=== PATIENT | female | born 1960 | race Caucasian/White ===

== ENCOUNTER → 2017-05-01 | Outpatient (CLI) | payer OTHER ==
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
== END | disposition home or self-care (01) ==
LOC: RADCTMAIN 16:06
PROVIDERS: ATTEND Internal Medicine Infectious Disease
DX: M48.02 Spinal stenosis, cervical region (principal); M99.71 Connective tissue and disc stenosis of intervertebral foramina of cervical region; M46.82 Other specified inflammatory spondylopathies, cervical region; M47.812 Spondylosis without myelopathy or radiculopathy, cervical region
CPT/HCPCS: 72125

== ENCOUNTER → 2017-06-04 | Outpatient (CLI) | payer OTHER ==
[2017-06-03 15:45] VITALS: BMI 21.9
[2017-06-04 14:39] VITALS: BP 158/86; PULSE 74; RESP 18; TEMP 98.5
--- NOTE | 2017-06-04 16:36 | P.CONS ---
History of Present Illness - Reason for Consult Consult date: 06/04/17 - Chief Complaint Neck and lower back pain - History of Present Illness This is a 57-year-old HIV positive woman with chronic history of neck, and lower back pain. The neck pain is more intense than her lower back pain and it radiates down her spine but she occasionally gets numbness and tingling in both hands. Also the pain occasionally goes down her left arm to the elbow on the left side. The pain keeps her up at night as she states. She denies any weakness in the upper or lower extremities or any bowel or bladder dysfunction. She had seen a surgeon many years ago who recommended surgery at that point however the patient did not want to undergo surgery at that point. The patient was seen in our clinic in 2013 at that point she also refused to have any injections done. Meanwhile she has been getting prescriptions for MS Contin 30 mg twice a day and [place] 10 mg 3 times a day from Dr. Patel. The patient was referred to us for opioid management. The patient had an MRI done on the cervical spine which showed severe left facet arthropathy and severe left neural foraminal narrowing at the C3-C4 level it also showed severe uncovertebral hypertrophy and facet arthropathy creating severe bilateral neuroforaminal narrowing at C5-C6 level. The patient is a heavy smoker and she came in today with her boyfriend who was doing most of the talk for her,and demanding that she be prescribed the same dosage of her opioids, because it has been working for her for the last 9 years as he states. Past Medical History Past Medical History: No Reported History, COPD, GERD/Reflux, Hearing Disorder / Deafness, Osteoarthritis (OA), Respiratory Disorder, Skin Disorder, Thyroid Disorder Additional Past Medical History / Comment(s): HIV. SPINAL STENOSIS IN NECK. HERNIATED DISC History of Any Multi-Drug Resistant Organisms: None Reported Past Surgical History: Section Additional Past Surgical History / Comment(s): ANAL FISTULA REPAIR X 2 Past Anesthesia/Blood Transfusion Reactions: No Reported Reaction Smoking Status: Current every day smoker - Past Family History Mother Family Medical History: No Reported History Medications and Allergies Home Medications Medication Instructions Recorded Confirmed Type Azithromycin 600 mg PO FR 08/12/13 06/04/17 History Levothyroxine Sodium [Synthroid] 100 mcg PO DAILY 08/12/13 06/04/17 History Morphine Sulfate [Ms Contin] 30 mg PO Q8HR 08/12/13 06/04/17 History Elviteg/Dixie/Emtric/Tenofo Dis 1 tab PO DAILY 06/03/17 06/04/17 History [Stribild Tablet] Ergocalciferol [Vitamin D2] 50,000 unit PO MO 06/03/17 06/04/17 History Ranitidine HCl 300 mg PO BID 06/03/17 06/04/17 History Sennosides [Senna] 8.6 mg PO BID 06/03/17 06/04/17 History Umeclidinium [place] [Incruse 62.5 mcg INHALATION DAILY 06/03/17 06/04/17 History Ellipta] HYDROcodone/APAP 10-325MG [[place] 1 tab PO QID 06/04/17 06/04/17 History 10-325] Allergies Allergy/AdvReac Type Severity Reaction Status Date / Time amoxicillin trihydrate Allergy Nausea Verified 06/03/17 15:36 [From Augmentin] potassium clavulanate Allergy Nausea Verified 06/03/17 15:36 [From Augmentin] Physical Exam Vitals: Vital Signs Temp Pulse Resp BP Pulse Ox 06/04/17 14:29 98.5 F 74 18 158/86 99 - Constitutional General appearance: thin - EENT Eyes: PERRLA ENT: hard of hearing - Respiratory Respiratory: bilateral: CTA - Cardiovascular Rhythm: regular - Neurologic Neurologic: CNII-XII intact - Musculoskeletal Musculoskeletal: strength equal bilaterally - Psychiatric Psychiatric: A&O x's 3, appropriate affect, intact judgment & insight Neuro exam of the upper extremities showed normal and symmetrical deep tendon reflexes and muscle strength. She has tenderness in the cervical paravertebral area bilaterally. Neuro exam of the lower extremities showed normal and symmetrical muscle strength, hyperreflexive knee reflexes and absent ankle reflexes bilaterally. She has no greater trochanter tenderness. Straight leg raising test negative bilaterally. Carlin's test negative bilaterally. Internal and external rotation of the hip joints did not elicit any pain. She has decreased range of motion of the cervical spine with pain with extreme range of motion. Assessment and Plan Plan: This is a 57-year-old female with the following diagnoses: Cervical spondylosis without myelopathy Cervical neuroforaminal stenosis Tobacco usage Opioid dependence HIV-positive The patient may benefit from getting cervical medial branch block and if it does help her pain we can plan on doing radio frequency ablation in the future, however the patient refuses to have any injections done on her neck and her boyfriend was also voicing his concern saying that this injection never worked. The patient's boyfriend was adamant about getting prescriptions for the same medications that she's been on. I am concerned with prescribing these medications with such a high dose given her the patient has been on them for many years now. I will however prescribe small dose of her medications and try to wean her down on opioids and I'll prescribe her MS Contin 30 mg twice a day only(#60) and [place] 10 mg twice a day too(#60). The prescriptions are to be filled 2 weeks from now because the patient has prescription from Dr. Patel. The patient continues to refuse our care plan then she might need to see a different pain clinic in the future.
== END | disposition home or self-care (01) ==
LOC: PNWHC3 13:21
PROVIDERS: ATTEND Anesthesiology
DX: G89.29 Other chronic pain (principal); M54.2 Cervicalgia; M54.5 Low back pain; M99.71 Connective tissue and disc stenosis of intervertebral foramina of cervical region; M47.812 Spondylosis without myelopathy or radiculopathy, cervical region; M46.82 Other specified inflammatory spondylopathies, cervical region; F17.200 Nicotine dependence, unspecified, uncomplicated; J44.9 Chronic obstructive pulmonary disease, unspecified; K21.9 Gastro-esophageal reflux disease without esophagitis; M19.90 Unspecified osteoarthritis, unspecified site; E07.9 Disorder of thyroid, unspecified; Z79.2 Long term (current) use of antibiotics; Z79.899 Other long term (current) drug therapy; Z79.891 Long term (current) use of opiate analgesic; Z88.0 Allergy status to penicillin; Z88.1 Allergy status to other antibiotic agents; Z21 Asymptomatic human immunodeficiency virus [HIV] infection status
CPT/HCPCS: 99211

== ENCOUNTER → 2017-07-02 | Outpatient (CLI) | payer OTHER ==
[2017-07-02 13:06] VITALS: BP 153/80; PULSE 69; RESP 18
--- NOTE | 2017-07-03 13:48 | P.PN ---
Subjective Progress Note Date: 07/02/17 Principal diagnosis: This is follow-up visit for this patient with a history of severe and chronic neck pain ,and low back pain , she had an MRI of the cervical spine done previously and it showed patient had Cervical degenerative disc disease and cervical spondylosis with cervical facet arthropathy , last visit we discussed the option of doing diagnostic medial branch block to treat her neck pain , patient denied any interventional pain management , and she is currently on MS Contin 30 mg twice a day and [place] 10/ 325 when necessary twice a day Patient denies any side effects of the medication, denies excessive drowsiness or sleepiness, denies suicidal ideation, and reports that the current pain medication is NOT helping To control the pain and improve activity of daily living . Patient denies any motor or sensory deficit, denies change in bowel movement or urination, patient denies any fever or night sweats and patient here for follow-up visit and medication refill, patient reported that her pain in the low back area increases significantly , and is interfering with her quality of life and preventing her from doing any activity of daily livings, intensity of the pain is 7/10 increased with activity to 10 over 10, she is able to ambulate , but any movement increases her pain Objective - Vital Signs Vital signs: Vital Signs Temp Pulse 69 07/02/17 12:55 Resp 18 07/02/17 12:55 BP 153/80 07/02/17 12:55 Pulse Ox Intake & Output 07/02/17 07/03/17 07/03/17 18:59 06:59 18:59 Weight 55.338 kg - Exam Physical Examinations : 1-Constitutiona : Cooperative , not in acute distress . 2-HEENT : nech ; supple , no Lymphadenopathy , normal thyroid size . eyes : no ptosis , no icterus, no photophobia . ENT : normal of hearing , normal oropharynx , no Thrush . 3- Respiratory : Chest clear to auscultations Bilaterally , no wheezing , no Rhonchi . 4- Cardiovascular : regular rate and rhythem , S1 , S2 , no S3 , no S4. 5- Gastrointestinal : abdomen soft no tenderness , bowel sounds positive all four quadrents , no organomegally . 6- Genitourinary : Defferred . 7- neurologic : Cranial nerve II to XII intact , no focal neurological deffecit . 8-psychatric : alert , oriented X 3 , appropriate affect , intact judgment and insight . 9-Lymphatic : no Lymphadenopathy . 10- musculoskeltal : cervical spine = motor stregnth in the deltoid and biceps, motor stregnth biceps and the wrist extensors (C6) . motor stregnth in the triceps muscle . deep tendon reflexes normal at the biceps , normal at Brachioradialis , normal at the Triceps positive cervical facet loading test . , Lumber spine = normal moter stegnth lower extremities ,thigh and legs .5/5 deep tendon reflexes : normal Knee Jerk , normal ankle Jerk . lumber facet Loading Test positive strait leg raising test negative bilaterally Fabere test negative bilaterally Positive tenderness over the left sacroiliac joint Assessment and Plan Plan: Assessment and plan= Chronic neck pain secondary to cervical spondylosis, patient refuses any interventional pain management on the cervical area. chronic low back pain secondary to lumbar spondylosis with lumbar facet arthropathy , We will order MRI of the lumbar spine to evaluate the etiology chronic and current use of high-risk medication (opioids) Patient denies any side effects of the current pain medication and the current treatment/medication ML and the patient to do activity of daily living , Diagnoses, prognosis, treatment options, including but not limited to physical therapy, medication management, interventional therapies, and surgery, were discussed with the patient All the questions answered Patient signed the narcotic agreement, and he was orally counseled, not to overuse, not to abuse, not to Divert , not tp sell pain medication, and to take it as prescribed only, Patient was counseled not to drive or operate heavy equipment while using narcotic medication, and advised not to use alcohol or any Illicit drugs while using the narcotis, the patient's verbalized understanding that lack of compliance with any of the above instructions and will likely to cause discharge from the pain service, not to renew his narcotic prescriptions Medication managements= patient given e prescription refills for MS Contin 30 mg twice a day dispense 60, [place] 10/325 every 12 hours when necessary dispense 60 Urine drug screen ordered, she will follow up in the pain clinic in 1 month's , Time with Patient: Less than 30
== END | disposition home or self-care (01) ==
LOC: PNWHC3 12:45
PROVIDERS: ATTEND Specialist
DX: G89.29 Other chronic pain (principal); M47.812 Spondylosis without myelopathy or radiculopathy, cervical region; M47.816 Spondylosis without myelopathy or radiculopathy, lumbar region; M46.96 Unspecified inflammatory spondylopathy, lumbar region; Z79.899 Other long term (current) drug therapy; Z79.891 Long term (current) use of opiate analgesic
CPT/HCPCS: 80356; 99211

== ENCOUNTER → 2017-07-25 | Outpatient (CLI) | payer OTHER ==
--- NOTE | 2017-07-25 16:01 | MR ---
EXAMINATION TYPE: MR lumbar spine wo con DATE OF EXAM: 07/25/2017 COMPARISON: NONE HISTORY: Lower back pain into left hip CONTRAST: 0 mL intravenous Gadavist. TECHNIQUE: Multiplanar, multisequence images of the lumbar spine were acquired. FINDINGS: Mild diffuse disc desiccation is present. Disc heights appear preserved. L5-S1: No significant disc bulge or disc herniation. No spinal canal stenosis. No foraminal stenosi s. Facet hypertrophy is present. L4-L5: No significant disc bulge or disc herniation. No spinal canal stenosis. No foraminal stenosi s. . L3-L4: No significant disc bulge or disc herniation. No spinal canal stenosis. No foraminal stenosi s. Some facet hypertrophy is present without posterior lateral thecal sac compression.. L2-L3: No significant disc bulge or disc herniation. No spinal canal stenosis. No foraminal stenosi s. . L1-L2: No significant disc bulge or disc herniation. No spinal canal stenosis. No foraminal stenosi s. . T12-L1: No significant disc bulge or disc herniation. No spinal canal stenosis. No foraminal stenos is. . There is patchy variable intensity throughout the visualized osseous structures. Is there an etiology for marrow conversion? Consider the possibility of diffuse metastasis. Additional workup is recommen ded IMPRESSION: 1. No suspicious spinal canal or foraminal stenosis. 2. Patchy distribution through the marrow. This may be related to red marrow conversion. Infiltrative metastatic disease is not excluded. Additional workup is recommended.
== END ==
LOC: RADMRIMAIN 15:10
PROVIDERS: ATTEND Specialist
DX: M89.8X8 Other specified disorders of bone, other site (principal); M47.816 Spondylosis without myelopathy or radiculopathy, lumbar region
CPT/HCPCS: 72148

== ENCOUNTER → 2017-07-30 | Outpatient (CLI) | payer OTHER ==
[2017-07-30 14:28] VITALS: BP 144/82
[2017-07-30 14:29] VITALS: PULSE 86; RESP 18
--- NOTE | 2017-07-30 14:48 | P.PN ---
Progress Note - Text Progress Note Date: 07/30/17 Patient returns for followup for chronic back pain with radiation to left > right hip. Patient recently underwent MRI, results below. Patient is currently prescribed MSContin and Masp[place] which she says is not helping her with the pain, as she was getting substantially higher-dose opioids prior to her coming to our facility. Patient denies adverse drug effects from medications. Today, pt denies new-onset weakness, bowel/bladder incontinence, or any other signs or symptoms of cauda equina syndrome. There are no signs of acute intoxication, and no indications of medication diversion or overuse. In addition to above, 13-point review of systems is also negative for chest pain , shortness of breath, changes in vision, changes in hearing, new onset weakness , abdominal pain, diarrhea, extreme fatigue, malaise, fever, skin changes, homicidal or suicidal ideation, or bowel or bladder incontinence. Vital Signs: Reviewed in EMR Gen: WDWN, AAOx3, NAD HEENT: NCAT, EOMI, hearing grossly normal Pulm: resp unlabored Abd: soft, NT, ND Neck: supple, trachea midline ROM in flexion lumbar spine: reduced ROM in extension lumbar spine: reduced Lumbar paravertebral tenderness: + Facet loading: + R side Imaging: MRI lumbar spine without contrast dated 07/25/2017 demonstrates some mild facet hypertrophy without posterior lateral thecal sac compression at the L3-L4 level. There is mild facet hypertrophy present also at the L5-S1 level. There is no suspicion for spinal canal or foraminal stenosis. Assessment: 1. opioid dependence 2. chronic low back pain with essentially negative MRI 3. marijuana abuse Plan: 1. Explanation: Opioid and psychological risk scores were reviewed. Diagnoses , prognoses, and multiple treatment options including but not limited to physical therapy, interventional therapies, adjuvant medical therapies, narcotic medication therapies, and surgery were discussed with the patient and all questions were answered to the patient's satisfaction. 2. Opioid agreement: patient discharged from our clinic for +THC 3. Counseling: The patient was counseled extensively on SMOKING CESSATION, BODY MASS INDEX, EXERCISE. Specifically, the patient was instructed regarding the importance of smoking cessation, weight control, and exercise in the context of both chronic pain and overall health. 4. Procedures: none 5. Consultations: None 6. Investigations: UDS +THC and positive for opioids (oxycodone) that are not prescribed, MAPS queried and appropriate 7. Medications: MSContin 30 mg #60 with no refill, M[place] 10/325 #60 with appropriate fill dates 8. Morphine equivalents per day prescribed: 80 9. Disposition: Patient DISCHARGED from our care due to +THC and + oxycodone and metabolite in UDS. DO NOT RESCHEDULE. Patient instructed to follow up with primary care physician for further management and further workup of MRI findings if needed. PQRS measures: 1-Patient's medications are documented in the chart. 2-Tobacco use is positive, counseling refused 3-Patient has not had a pneumococcal vaccine. 4-Advanced care planning discussed, patient unable to give. 5-Opioid contract NOT signed with the patient. 6-Pain positive, follow-up visit or procedure scheduled 7-Patient's blood pressure measured and documented, and patient will follow up with the primary care due to hypertension. 8-Patient's weight was measured, and body mass index WNL. 9-Patient WAS NOT identified as an unhealthy alcohol user.
== END | disposition home or self-care (01) ==
LOC: PNWHC3 14:01
PROVIDERS: ATTEND Anesthesiology
DX: G89.29 Other chronic pain (principal); F12.10 Cannabis abuse, uncomplicated; Z79.899 Other long term (current) drug therapy; Z79.891 Long term (current) use of opiate analgesic
CPT/HCPCS: 99211

== ENCOUNTER 2020-01-15 19:45 | Inpatient (IN) | payer OTHER ==
[2020-01-15] MEDS ORDERED: NALOXONE 0.4 MG/ML 1 ML VIAL IV PRN (21:36)
--- NOTE | 2020-01-15 21:36 | ED ---
General Adult HPI - General Source: patient, EMS Mode of arrival: EMS Limitations: no limitations <Sandy Kiran - Last Filed: 01/15/20 21:28> <Gracy Lemus - Last Filed: 01/21/20 11:57> - General Chief complaint: Neuro Symptoms/Deficit Stated complaint: hypertension Time Seen by Provider: 01/15/20 20:02 - History of Present Illness Initial comments: 59-year-old female patient presents to the emergency department as a transfer from [facility] for neurology evaluation. Patient reports that she has been having dizziness and intermittent headaches over the last month. The patient states today around 1730 she developed "upside down vision". Patient states it appeared that everything was upside down. States this comes and goes. She did undergo extensive ER evaluation at [place] including labs, CT brain wo contrast, and chest xray. CT brain did show acute on chronic cerebellar infar ct. Patient wanted to be transferred to this department. She denies any current headache. Denies numbness, tingling, weakness to her extremities. Denies history of stroke. She does report a history of HIV and is currently on retroviral therapy. Patient denies any recent rash, fever, chills, cough, shortness of breath, chest pain, abdominal pain, nausea, vomiting, diarrhea, constipation, back pain, hematuria, dysuria, urinary urgency, urinary frequency, or any other complaints. (Sandy Kiran) - Related Data Home Medications Medication Instructions Recorded Confirmed Dolutegravir Sodium [Tivicay] 50 mg PO DAILY 01/15/20 01/15/20 Edurant 25mg 25 mg PO DAILY 01/15/20 01/15/20 HYDROcodone/APAP 10-325MG [[place] 1 tab PO TID 01/15/20 01/15/20 10-325] Morphine Sulfate [Ms Contin] 30 mg PO Q12H 01/15/20 01/16/20 Levothyroxine Sodium [Synthroid] 50 mcg PO QAM 01/16/20 01/16/20 Previous Rx's Medication Instructions Recorded Aspirin 81 mg PO DAILY chew 01/18/20 Atorvastatin [Lipitor] 80 mg PO DAILY #30 tab 01/18/20 Clopidogrel [Plavix] 75 mg PO DAILY #21 tablet 01/18/20 amLODIPine [Norvasc] 5 mg PO DAILY #30 tab 01/18/20 Allergies Allergy/AdvReac Type Severity Reaction Status Date / Time dextrose 5 % in water Allergy Anaphylaxis Verified 01/15/20 22:11 [From Zyvox] linezolid [From Zyvox] Allergy Anaphylaxis Verified 01/15/20 22:11 amoxicillin trihydrate AdvReac Nausea Verified 01/15/20 22:11 [From Augmentin] potassium clavulanate AdvReac Nausea Verified 01/15/20 22:11 [From Augmentin] Review of Systems ROS Other: All systems not noted in ROS Statement are negative. <Sandy Kiran - Last Filed: 01/15/20 21:28> ROS Other: All systems not noted in ROS Statement are negative. <Gracy Lemus - Last Filed: 01/21/20 11:57> ROS Statement: Those systems with pertinent positive or pertinent negative responses have been documented in the HPI. Past Medical History Past Medical History: No Reported History, COPD, GERD/Reflux, Hearing Disorder / Deafness, Osteoarthritis (OA), Respiratory Disorder, Skin Disorder, Thyroid Disorder Additional Past Medical History / Comment(s): HIV. SPINAL STENOSIS IN NECK. HERNIATED DISC History of Any Multi-Drug Resistant Organisms: None Reported Past Surgical History: Section Additional Past Surgical History / Comment(s): ANAL FISTULA REPAIR X 2 Past Anesthesia/Blood Transfusion Reactions: No Reported Reaction Past Psychological History: Depression Smoking Status: Current every day smoker Past Alcohol Use History: None Reported Past Drug Use History: None Reported - Past Family History Mother Family Medical History: No Reported History <Sadny Kiran - Last Filed: 01/15/20 21:28> General Exam Limitations: no limitations General appearance: alert, in no apparent distress, other (This is a well-developed, well-nourished adult female patient in no acute distress. Vital signs upon presentation are temperature 100.6F oral, pulse 69, respirations 18, blood pressure 189/87, pulse ox 98% on room air.) Eye exam: Present: normal appearance, PERRL, EOMI. Absent: scleral icterus, conjunctival injection, nystagmus, periorbital swelling ENT exam: Present: normal exam, normal oropharynx, mucous membranes moist Respiratory exam: Present: normal lung sounds bilaterally. Absent: respiratory distress, wheezes, rales, rhonchi, stridor Cardiovascular Exam: Present: regular rate, normal rhythm, normal heart sounds. Absent: systolic murmur, diastolic murmur, rubs, gallop, clicks GI/Abdominal exam: Present: soft, normal bowel sounds. Absent: distended, tenderness, guarding, rebound, rigid Extremities exam: Present: normal inspection, full ROM, normal capillary refill. Absent: tenderness, pedal edema, joint swelling, calf tenderness Neurological exam: Present: alert, oriented X3, CN II-XII intact Expanded Speech: Present: fluid speech Cranial nerves: EOM's Intact: Normal, Tongue Deviation: Normal Motor strength exam: RUE: 5, LUE: 5, RLE: 5, LLE: 5 Psychiatric exam: Present: normal affect, normal mood Skin exam: Present: warm, dry, intact, normal color. Absent: rash <Sandy Kiran - Last Filed: 01/15/20 21:28> Course Vital Signs 01/15/20 01/15/20 01/15/20 19:52 20:03 20:36 Temperature 100.6 F H 99.4 F Pulse Rate 69 71 75 Respiratory 18 20 18 Rate Blood Pressure 189/87 174/79 166/86 O2 Sat by Pulse 98 97 98 Oximetry 01/15/20 01/15/20 01/15/20 21:23 21:59 22:22 Temperature 98.9 F 99.0 F Pulse Rate 71 110 H 80 Respiratory 18 18 18 Rate Blood Pressure 176/74 176/84 168/81 O2 Sat by Pulse 100 97 98 Oximetry Medical Decision Making - Radiology Data Radiology results: report reviewed, image reviewed <Sandy Kiran - Last Filed: 01/15/20 21:28> - Lab Data Result diagrams: 01/17/20 06:53 01/17/20 06:53 <Gracy Lemus - Last Filed: 01/21/20 11:57> - Medical Decision Making 59-year-old female patient presented to the emergency department today as a t ransfer from [facility]. Patient was sent for neurology evaluation due to changes on computed tomography scan. She presents month history of dizziness and headaches. Today she developed "upside down vision" around 1730, this was new for her. She states this is intermittent. Upon arrival to this emergency Department blood sugar has improved. She has no focal deficits noted during neurologic evaluation. Review of records did indicate CT showed an old right posterior cerebellar infarct, at the inferior edge of this infarct there is more acute appearing infarct measuring up to 15 mm. Labs, chest x-ray, and EKG were reviewed and appeared unremarkable. Patient will be admitted to the hospital for neurology evaluation after undergoing CT angiography of the head and neck. Patient is agreeable with this plan. (Sandy Kiran) I was available for consultation in the emergency department. The history and physical exam were done by the midlevel provider. I was consulted for this patients care. I reviewed the case with the midlevel provider and based on their presentation of the patient, I agree with the assessment, medical decision making and plan of care as documented. Chart was dictated using [employer] dictation software. Attempts were made to correct any dictation errors however some typographical errors may persist. Patient was seen during a national state of emergency due to the Covid-19 pandemic. (Gracy Lemus) - Radiology Data Head without contrast was obtained at an outside facility. Report was reviewed in its entirety. Impression by Dr. Padilla shows old right posterior cerebellar infarct. At the inferior edge of this infarct is a more acute appearing infarct measuring up to 15 mm. X-ray of the chest 2 views were obtained at an outside facility. Report was reviewed in its entirety. Impression by Dr. Padilla shows no acute findings. (Sandy Kiran) Disposition Decision to Admit Reason: Admit from EC Decision Date: 01/15/20 Decision Time: 21:36 <Sandy Kiran - Last Filed: 01/15/20 21:28> <Gracy Lemus - Last Filed: 01/21/20 11:57> Clinical Impression: CVA (cerebral vascular accident), Visual disturbance Disposition: ADMITTED IP TO THIS [facility] Condition: Stable
--- NOTE | 2020-01-15 21:51 | CT ---
EXAMINATION TYPE: CT angio head neck DATE OF EXAM: 01/15/2020 COMPARISON: HISTORY: FELIX CT DLP: 375.7 mGycm Automated exposure control for dose reduction was used. CONTRAST: Performed with IV Contrast, patient injected with 65 mL of Isovue 370. There are 3-D post processed images. There is normal branching pattern of the great vessels on the aortic arch. There is bilateral arteria l flow in the subclavian arteries. There is arterial flow in the common internal and external carotid arteries bilaterally. There is arterial flow in both vertebral arteries. There is some mild plaque f ormation at the carotid artery bifurcations bilaterally. There is estimated 40% stenosis proximal lef t internal carotid artery. There is estimated 20% stenosis proximal right internal carotid artery. Th ere is no evidence of carotid or vertebral artery aneurysm or dissection. Left vertebral artery is la rger than the right. There is arterial flow in the vertebrobasilar artery system. There is arterial flow in the anterior middle and posterior cerebral arteries. There is normal contrast opacification of the venous sinuses. I see no evidence of intracranial aneur ysm or neovascularity. There is no mass effect. There is no evidence of intracranial arterial stenosi s. IMPRESSION: There is atherosclerotic plaque and estimated 20% stenosis origin right internal carotid artery and 4 0% stenosis left internal carotid artery. No intracranial angiographic abnormality.
[2020-01-15] MEDS: SODIUM CHLORIDE 0.9% 1,000 ML IV SCH (22:24)
--- NOTE | 2020-01-16 03:39 | P.HPIM ---
History of Present Illness H&P Date: 01/15/20 The patient is a 59-year-old female with a PMH of HIV on ART therapy (last CD4 count 700 as per pt), COPD, and hypothyroidism who was transferred to the emergency room from [facility] for neurology evaluation. Patient had presented to our weeks earlier that day with complaints of dizziness and headaches. The patient notes that her symptoms started roughly one month ago and she has had intermittent daily dizziness which she describes as lightheadedness. Notes that her dizziness is worse with suddenly standing up. Denies vertigo. Denied loss of consciousness or falls. The patient also denied experiencing any weakness, numbness, or tingling of any of her extremities. Denied facial numbness, tingling, asymmetry or changes in her speech. Reported that her into the gotten worse earlier today after which she decided to come to the hospital. The patient underwent an extensive evaluation of [facility] which was all reviewed. A CT brain revealed findings consistent with chronic microvascular disease along with an acute on chronic cerebellar infarct. Laboratory evaluation revealed WBC count of 9.4, Hgb 13.9, platelets 241, sodium 135, potassium 3.8, chloride 100, CO2 27, BUN 15, creatinine 1.3, glucose 94, AST 12, ALT 4, INR 1.08, alkaline phosphatase 99, and total bilirubin 0.5. CXR was unremarkable. Review of Systems Pertinent positives and negatives as discussed in HPI, a complete review of systems was performed and all other systems are negative. Past Medical History Past Medical History: No Reported History, COPD, GERD/Reflux, Hearing Disorder / Deafness, Osteoarthritis (OA), Respiratory Disorder, Skin Disorder, Thyroid Disorder Additional Past Medical History / Comment(s): HIV. SPINAL STENOSIS IN NECK. HERNIATED DISC History of Any Multi-Drug Resistant Organisms: None Reported Past Surgical History: Section Additional Past Surgical History / Comment(s): ANAL FISTULA REPAIR X 2 Past Anesthesia/Blood Transfusion Reactions: No Reported Reaction Past Psychological History: Depression Smoking Status: Current every day smoker Past Alcohol Use History: None Reported Additional Past Alcohol Use History / Comment(s): SMOKES 1 PPD SINCE 1974 Past Drug Use History: None Reported - Past Family History Mother Family Medical History: No Reported History Medications and Allergies Home Medications Medication Instructions Recorded Confirmed Type Dolutegravir Sodium [Tivicay] 50 mg PO DAILY 01/15/20 01/15/20 History Edurant 25mg 25 mg PO DAILY 01/15/20 01/15/20 History HYDROcodone/APAP 10-325MG [[place] 1 tab PO TID 01/15/20 01/15/20 History 10-325] Levothyroxine(Unknown) 1 tab PO DAILY 01/15/20 01/15/20 History Morphine Sulfate [Ms Contin] 30 mg PO Q12H 01/15/20 01/15/20 History Pantoprazole [Protonix] 40 mg PO AC-BRKFST 01/15/20 01/15/20 History Allergies Allergy/AdvReac Type Severity Reaction Status Date / Time dextrose 5 % in water Allergy Anaphylaxis Verified 01/15/20 22:11 [From Zyvox] linezolid [From Zyvox] Allergy Anaphylaxis Verified 01/15/20 22:11 amoxicillin trihydrate AdvReac Nausea Verified 01/15/20 22:11 [From Augmentin] potassium clavulanate AdvReac Nausea Verified 01/15/20 22:11 [From Augmentin] Physical Exam Vitals: Vital Signs Temp Pulse Pulse Resp BP BP Pulse Ox 01/15/20 22:38 98.1 F 74 18 194/89 95 01/15/20 22:22 99.0 F 80 18 168/81 98 01/15/20 21:59 98.9 F 110 H 18 176/84 97 01/15/20 21:23 71 18 176/74 100 01/15/20 20:36 99.4 F 75 18 166/86 98 01/15/20 20:03 71 20 174/79 97 01/15/20 19:52 100.6 F H 69 18 189/87 98 Intake and Output 01/15/20 01/15/20 01/16/20 14:59 22:59 06:59 Output Total 280 Balance -280 Output: Urine 280 Other: # Voids 1 Weight 50.802 kg General: non toxic, no distress, appears at stated age, normal weight Derm: no unusual rashes/lesions no unusual ecchymoses, warm, dry Head: atraumatic, normocephalic, symmetric Eyes: EOMI, no lid lag, anicteric sclera, pupils equal round reactive to light ENT: Nose and ears atraumatic, no thrush, no pharyngeal erythema Neck: No thyromegaly, no cervical lymphadenopathy, trachea midline, supple Mouth: no lip lesion, mucus membranes moist Cardiovascular: S1S2 reg, no murmur, positive posterior tibial pulse bilateral, no edema, capillary refill less than 2 seconds Lungs: CTA bilateral, no rhonchi, no rales , no accessory muscle use Abdominal: soft, nontender to palpation, no guarding, no appreciable organomegaly, normal bowel sounds Ext: no gross muscle atrophy, muscle strength 5 out of 5 in all 4 extremities grossly, no contractures, Neuro: CN II-XI grossly intact, light touch intact all 4 extremities, finger to nose within normal limits, Psych: Alert, oriented, appropriate affect Thrombosis Risk Factor Assmnt - Choose All That Apply Any of the Below Risk Factors Present?: Yes Each Factor Represents 1 point: Abnormal pulmonary function (COPD), Age 41-60 years Other Risk Factors: No Other congenital or acquired thrombophilia - If yes, enter type in comment: Yes Each Risk Factor Represents 5 Points: Stroke (< 1 month) Thrombosis Risk Factor Assessment Total Risk Factor Score: 7 Thrombosis Risk Factor Assessment Level: High Risk Assessment and Plan Plan: Acute on chronic cerebellar infarct -CT angiogram at [place] revealed no intracranial angiographic abnormalities -Neuro checks -Neurology consult -Aspirin daily -Fall precautions -Check orthostatics -PT consult Chronic conditions: HIV, hypothyroidism, COPD -Continue with home meds DVT prophylaxis -IPCDs The patient is admitted with an anticipated greater than 2 midnight stay for evaluation of CVA CODE STATUS: Full Code Discussed with: Patient Anticipated discharge date: 2-[address]: Home A total of 35 minutes was spent on the care of this complex patient more than 5 0% of the time was spent in counseling and care coordination.
[2020-01-16] MEDS ORDERED: PANTOPRAZOLE 40 MG TABLET PO SCH (07:30)
[2020-01-16] MEDS: ASPIRIN 81 MG PO SCH (08:14)
[2020-01-16] MEDS: ATORVASTATIN 80 MG TAB PO SCH (08:14)
[2020-01-16] MEDS ORDERED: LABETALOL 5 MG/ML VIAL MDV IVP PRN (08:26)
[2020-01-16] MEDS: EDURANT 25 MG PO SCH (08:38)
[2020-01-16] MEDS ORDERED: LEVOTHYROXINE PO SCH (09:00)
[2020-01-16] MEDS: FAMOTIDINE 20 MG TAB PO SCH ×2 (10:59→20:32)
--- NOTE | 2020-01-16 11:29 | P.PN ---
Subjective Progress Note Date: 01/16/20 (delayed charting seen at 0830) Principal diagnosis: dizziness Patient is a 59-year-old female past medical history of HIV on antiretroviral therapy (last CD4 count 700 per patient), COPD, and hypothyroidism who was transferred here from [place] for neurology evaluation. Initially she presented to [place] with complaints of dizziness, she underwent a head CT which showed acute evolving cerebellar infarct. On arrival here her vital signs are within normal limits. She underwent a CT angiogram of the head and neck which demonstrated a 20% stenosis of the origin of the right internal carotid and a 40% stenosis in the left internal carotid with no intracranial an giographic abnormalities. She was started on aspirin and statin. She is admitted for neurologic evaluation. Currently in normal sinus rhythm. Patient seen and examined at bedside. She still has some dizziness mostly when up and moving around. She is having some nausea at baseline. No headache, no double vision or blurry vision, no difficulty with concentration or thinking. Dexterity, numbness, or tingling. General: Nontoxic, no distress, appears at stated age Derm: warm, dry Head: atraumatic, normocephalic, symmetric Eyes: EOMI, no lid lag, anicteric sclera Mouth: no lip lesion, mucus membranes moist Cardiovascular: S1S2 reg, no murmur, positive posterior tibial pulse bilateral, Lungs: CTA bilateral, no rhonchi, no rales , no accessory muscle use Abdominal: soft, nontender to palpation, no guarding, no appreciable organomegaly Ext: no gross muscle atrophy, no edema, no contractures Neuro: CN II-XI grossly intact, no focal neuro deficits Psych: Alert, oriented, appropriate affect Acute cerebellar infarct, right sided, suspect ischemic -Await neurology evaluation -Aspirin, statin -Check echo -Telemetry -CTA with moderate left-sided stenosis at 40% -Labetalol for systolic blood pressure greater than 220 or diastolic blood pressure greater than 120 -PT/OT/speech evaluation -Neuro checks Hypothyroidism -Synthroid Chronic pain - MS contin and norco from home resumed COPD without exacerbation - albuterol prn HIV - Tivicay and Edurant from home GERD - pepcid DVT prophylaxis: Heparin Discussed with: Patient, nursing Anticipated discharge: 2-[address]: home A total of 35 minutes was spent on the care of this complex patient more than 50% of the time was spent in counseling and care coordination. Objective - Vital Signs Vital signs: Vital Signs Temp 98.1 F 01/16/20 08:15 Pulse 109 H 01/16/20 08:17 Resp 18 01/16/20 08:15 BP 220/88 01/16/20 09:25 Pulse Ox 96 01/16/20 08:15 Intake & Output 01/15/20 01/16/20 01/16/20 18:59 06:59 18:59 Output Total 930 100 Balance -930 -100 Weight 50.802 kg Output: Urine 930 100 Other: Voiding Method Bedpan # Voids 3
[2020-01-16] MEDS: MORPHINE SULFATE ER 30 MG TABLET PO SCH ×2 (11:38→20:32)
[2020-01-16] MEDS ORDERED: LEVOTHYROXINE 50 MCG TAB PO SCH (13:30)
[2020-01-16] MEDS: LEVOTHYROXINE 50 MCG TAB PO SCH (14:16)
[2020-01-16] MEDS: HYDROcodone/APAP 10-325MG 1 EACH TAB PO SCH ×2 (14:18→20:33)
[2020-01-16] MEDS: HEPARIN SODIUM,PORCINE 5,000 UNIT/ML 1 ML VIAL SQ SCH ×2 (14:18→23:13)
--- NOTE | 2020-01-16 18:26 | P.CNNES ---
History of Present Illness Consult date: 01/16/20 Reason for Consult: acute on chronic right cerebellar infarct History of Present Illness: The patient is a 59-year-old female who is seen in neurologic consultation on January 16, 2020, via teleneurology. The patient reports that she has been dizzy for the past month. She describes this dizziness as a feeling of off balance and lightheadedness. She says when she has this episode of dizziness, she becomes very diaphoretic. She reports headaches. She says the pain is in the posterior left side of her head. Patient denies difficulty with speech and swallowing. She does describe changes in her vision. She reports seeing images that are upside down and sideways. The patient denies numbness, tingling and weakness in her extremities. The patient reports episodes of nausea and vomiting associated with her symptoms. She says she has had a very poor appetite. Patient states that the symptoms finally progressed to the point that she could no longer deal with them. She presented to the hospital at [place]. In the emergency department, a CT scan of the brain was performed. This CT scan revealed an acute on chronic right cerebellar infarct. The patient was subsequently transferred to [facility]. She had a CT angiogram of the head and neck, which revealed 40% stenosis of the left internal carotid artery. There is no reported stenosis of the vertebrobasilar system. Past Medical History Past Medical History: No Reported History, COPD, GERD/Reflux, Hearing Disorder / Deafness, Osteoarthritis (OA), Respiratory Disorder, Skin Disorder, Thyroid Disorder Additional Past Medical History / Comment(s): HIV. SPINAL STENOSIS IN NECK. HERNIATED DISC History of Any Multi-Drug Resistant Organisms: None Reported Past Surgical History: Section Additional Past Surgical History / Comment(s): ANAL FISTULA REPAIR X 2 Past Anesthesia/Blood Transfusion Reactions: No Reported Reaction Past Psychological History: Depression Smoking Status: Current every day smoker Past Alcohol Use History: None Reported Additional Past Alcohol Use History / Comment(s): SMOKES 1 PPD SINCE 1974 Past Drug Use History: None Reported - Past Family History Mother Family Medical History: No Reported History Medications and Allergies Home Medications Medication Instructions Recorded Confirmed Type Dolutegravir Sodium [Tivicay] 50 mg PO DAILY 01/15/20 01/15/20 History Edurant 25mg 25 mg PO DAILY 01/15/20 01/15/20 History HYDROcodone/APAP 10-325MG [[place] 1 tab PO TID 01/15/20 01/15/20 History 10-325] Morphine Sulfate [Ms Contin] 30 mg PO Q12H 01/15/20 01/16/20 History Levothyroxine Sodium [Synthroid] 50 mcg PO QAM 01/16/20 01/16/20 History Allergies Allergy/AdvReac Type Severity Reaction Status Date / Time dextrose 5 % in water Allergy Anaphylaxis Verified 01/15/20 22:11 [From Zyvox] linezolid [From Zyvox] Allergy Anaphylaxis Verified 01/15/20 22:11 amoxicillin trihydrate AdvReac Nausea Verified 01/15/20 22:11 [From Augmentin] potassium clavulanate AdvReac Nausea Verified 01/15/20 22:11 [From Augmentin] Physical Examination - Vital Signs Vital Signs: Vital Signs Temp Pulse Pulse Resp BP BP Pulse Ox 01/16/20 15:00 97.7 F 73 18 185/100 95 01/16/20 11:42 97.2 F L 82 18 184/88 97 01/16/20 09:25 220/88 01/16/20 08:17 109 H 01/16/20 08:15 98.1 F 109 H 18 225/160 96 01/16/20 04:00 98.1 F 83 17 173/92 98 01/15/20 23:58 98.1 F 74 17 194/89 95 01/15/20 22:38 98.1 F 74 18 194/89 95 01/15/20 22:22 99.0 F 80 18 168/81 98 01/15/20 21:59 98.9 F 110 H 18 176/84 97 01/15/20 21:23 71 18 176/74 100 01/15/20 20:36 99.4 F 75 18 166/86 98 01/15/20 20:03 71 20 174/79 97 01/15/20 19:52 100.6 F H 69 18 189/87 98 Intake and Output 01/16/20 01/16/20 01/16/20 06:59 14:59 22:59 Output Total 650 700 Balance -650 -700 Output: Urine 650 700 Other: Voiding Method Bedpan # Voids 3 3 # Bowel Movements 1 Gen.: The patient is reclining in the bed. She is well-nourished, well- developed and in no acute distress. HEENT: Head is atraumatic, normocephalic. Fundus not visualized. There is no scleral icterus. Mucous membranes are moist. Neck: Supple Heart: Regular rate and rhythm Extremities: Without edema Neurological examination Mental status: Patient is awake, alert and oriented 3. Her speech is clear. There is no dysarthria or aphasia. Cranial nerves: Pupils are equal at 2 mm and reactive. Visual morrison are full to confrontation. Extraocular movements are intact. There is no nystagmus. Facial sensation is intact. There is no facial asymmetry. Hearing is grossly intact. Uvula and palate are midline. Shoulder shrug is symmetric. Tongue protrudes midline. Motor: Strength is 5/5 throughout Coordination: Finger to nose and rapid alternating movements are intact Deep tendon reflexes: 2+/4+ in the upper extremities. 3+/4+ at the knees. 2+4+ at the Achilles reflexes. Sensation: Grossly intact to light touch Results - Diagnostic Findings Additional findings: CT scan images are reviewed Assessment and Plan Assessment: 1. Right cerebellar infarct, acute on chronic-per CT scan 2. History of chronic pain 3. History of HIV 4. History of hypothyroidism Plan: 1. MRI of brain to further evaluate infarct 2. 2-D echocardiogram 3. Stroke orders, including lipid panel, hemoglobin A1c, TSH, PT, OT and speech therapy evaluations 4. Dual antiplatelet therapy 3 weeks then aspirin 81 mg monotherapy thereafter 5. High-dose statin should be initiated
[2020-01-16] MEDS: SODIUM CHLORIDE 0.9% 1,000 ML IV SCH (20:33)
[2020-01-17] MEDS: LEVOTHYROXINE 50 MCG TAB PO SCH (06:03)
[2020-01-17 07:17] LABS: HCT 39.2 % (34.0-46.0); HGB 13.1 gm/dL (11.4-16.0); MCH 32.4 pg (25.0-35.0); MCHC 33.5 g/dL (31.0-37.0); MCV 96.6 fL (80.0-100.0); Mean Platelet Volume 7.4; Platelet Count 224 k/uL (150-450); RBC 4.06 m/uL (3.80-5.40); RDW 13.5 % (11.5-15.5); WBC 7.8 k/uL (3.8-10.6)
[2020-01-17 07:28] LABS: Calcium 9.3 mg/dL (8.4-10.2); Potassium 3.9 mmol/L (3.5-5.1)
[2020-01-17] MEDS: HYDROcodone/APAP 10-325MG 1 EACH TAB PO SCH ×3 (09:41→21:11)
[2020-01-17] MEDS: ASPIRIN 81 MG PO SCH (09:42)
[2020-01-17] MEDS: amLODIPine 5 MG TAB PO SCH (09:42)
[2020-01-17] MEDS: FAMOTIDINE 20 MG TAB PO SCH (09:43)
[2020-01-17] MEDS: ATORVASTATIN 80 MG TAB PO SCH (09:43)
[2020-01-17] MEDS: MORPHINE SULFATE ER 30 MG TABLET PO SCH ×2 (09:43→22:54)
[2020-01-17] MEDS: HEPARIN SODIUM,PORCINE 5,000 UNIT/ML 1 ML VIAL SQ SCH ×3 (09:44→22:54)
--- NOTE | 2020-01-17 10:17 | MR ---
MR brain without contrast HISTORY: Cerebellar infarct Multiplanar multisequence imaging through the brain Comparison to CT 01/15/2020 from outside institution There is restricted diffusion at the posterior aspect of the medial portion of the right cerebellar h emisphere corresponding to the hypodense abnormality on CT, there is corresponding hyperintensity and inversion recovery T2-weighted sequences. Cortical atrophy is present. Periventricular and pericallo aida hyperintensity and inversion recovery T2-weighted sequences corresponds to decreased attenuation on CT and is likely due to chronic small vessel ischemic change. There is no hemorrhage or hydrocepha constanza. There are normal vascular flow voids. There is artifact and motion on the exam. The orbits show symmetric appearance. Mild inflammatory change present in the ethmoid air cells. The corpus callosum, pituitary, cervical medullary junction, cerebellopontine angles are unremarkable. IMPRESSION: Subacute right cerebellar infarct. Chronic small vessel ischemic changes and age-related atrophy.
[2020-01-17] MEDS ORDERED: ARTIFICIAL TEARS-HYPROMELLOSE DROPS 15 ML BTL BOTH EYES PRN (10:57)
[2020-01-17] MEDS ORDERED: MECLIZINE 12.5 MG TAB PO PRN (10:58)
--- NOTE | 2020-01-17 11:07 | ECHOF ---
Referral Reason:Thrombus MEASUREMENTS -------- HEIGHT: 160.0 cm WEIGHT: 50.8 kg BP: RVIDd: 2.2 cm (< 3.3) IVSd: 1.0 cm (0.6 - 1.1) LVIDd: 4.5 cm (3.9 - 5.3) LVPWd: 0.8 cm (0.6 - 1.1) IVSs: 1.2 cm LVIDs: 2.9 cm LVPWs: 1.4 cm LA Diam: 3.1 cm (2.7 - 3.8) LAESV Index (A-L): 18.93 ml/m Ao Diam: 2.7 cm (2.0 - 3.7) AV Cusp: 1.6 cm (1.5 - 2.6) MV EXCURSION: 16.659 mm (> 18.000) MV EF SLOPE: 74 mm/s (70 - 150) EPSS: 0.5 cm MV E Bobby: 0.55 m/s MV DecT: 135 ms MV A Bobby: 0.58 m/s MV E/A Ratio: 0.95 RAP: 5.00 mmHg RVSP: 23.84 mmHg FINDINGS -------- Sinus rhythm. This was a technically adequate study. LV size, wall thickness and systolic function are normal, with an EF greater than 55%. The left savannah tricular size is normal. The diastolic filling pattern is normal for the age of the patient 10.11. The right ventricle is normal in size. Normal LA size by volume 22+/-6 ml/m2. The right atrial size is normal. There is mild aortic valve sclerosis. There is mild aortic regurgitation. Mild mitral annular calcification present. Mild mitral regurgitation is present. Mild tricuspid regurgitation present. Right ventricular systolic pressure is normal at < 35 mmHg. There is no pulmonic regurgitation present. The aortic root size is normal. There is no pericardial effusion. CONCLUSIONS -------- 1. LV size, wall thickness and systolic function are normal, with an EF greater than 55%. 2. The left ventricular size is normal. 3. The diastolic filling pattern is normal for the age of the patient 10.11 4. Normal LA size by volume 22+/-6 ml/m2. 5. There is mild aortic valve sclerosis. 6. There is mild aortic regurgitation. 7. Mild mitral annular calcification present. 8. Mild mitral regurgitation is present. 9. Mild tricuspid regurgitation present. COMPUTER BUILDER: Marisol Quiroz RDCS
--- NOTE | 2020-01-17 11:12 | P.PN ---
Subjective Progress Note Date: 01/17/20 Principal diagnosis: dizziness Patient is a 59-year-old female past medical history of HIV on antiretroviral therapy (last CD4 count 700 per patient), COPD, and hypothyroidism who was transferred here from [place] for neurology evaluation. Initially she presented to [place] with complaints of dizziness, she underwent a head CT which showed acute evolving cerebellar infarct. On arrival here her vital signs are within normal limits. She underwent a CT angiogram of the head and neck which demonstrated a 20% stenosis of the origin of the right internal carotid and a 40% stenosis in the left internal carotid with no intracranial angiographic abnormalities. She was started on aspirin and statin. She was admitted for neurologic evaluation. Currently in normal sinus rhythm. She underwent MRI of the brain which showed right sided subacute cerebellar infarct. Her cholesterol was elevated. Patient seen and examined at bedside. Still with dizziness and nausea with movement. No headache, no difficulty thinking. Her boyfriend lives with her and will be there at home when she is discharged. Follow with Carlin Peralta at Dr. Burns office. General: Nontoxic, no distress, appears at stated age Derm: warm, dry Head: atraumatic, normocephalic, symmetric Eyes: EOMI, no lid lag, anicteric sclera Mouth: no lip lesion, mucus membranes moist Cardiovascular: S1S2 reg, no murmur, positive posterior tibial pulse bilateral, Lungs: CTA bilateral, no rhonchi, no rales , no accessory muscle use Abdominal: soft, nontender to palpation, no guarding, no appreciable organomegaly Ext: no gross muscle atrophy, no edema, no contractures Neuro: CN II-XI grossly intact, no focal neuro deficits Psych: Alert, oriented, appropriate affect Acute cerebellar infarct, right sided, suspect ischemic -Neuro recs appreciated -Aspirin, statin -Echo pending -Telemetry -CTA with moderate left-sided stenosis at 40% -Labetalol for systolic blood pressure greater than 220 or diastolic blood pressure greater than 120 -PT/OT/speech evaluation pending -Neuro checks HTN urgency - has had 24 hours of premising HTN and stroke subacute on MRI - start Norvasc - Follow BP HLD - statin Hypothyroidism -Synthroid Chronic pain - MS contin and norco from home resumed COPD without exacerbation - albuterol prn HIV - Tivicay and Edurant from home GERD - pepcid DVT prophylaxis: Heparin Discussed with: Patient, nursing Anticipated discharge: in AM Anticipated discharge place: home with home health A total of 30 minutes was spent on the care of this complex patient more than 50% of the time was spent in counseling and care coordination. Objective - Vital Signs Vital signs: Vital Signs Temp 98.3 F 01/17/20 04:00 Pulse 60 01/17/20 04:00 Resp 17 01/17/20 04:00 BP 198/88 01/17/20 04:00 Pulse Ox 96 01/17/20 04:00 Intake & Output 01/16/20 01/17/20 01/17/20 18:59 06:59 18:59 Intake Total 120 125 Output Total 700 1200 Balance -580 -1075 Weight 51 kg Intake: Oral 120 125 Output: Urine 700 1200 Other: Voiding Method Bedside Commode # Voids 1 2 # Bowel Movements 1 1 - Labs CBC & Chem 7: 01/17/20 06:53 01/17/20 06:53 Labs: Abnormal Lab Results - Last 24 Hours (Table) 01/17/20 Range/Units 06:53 Creatinine 1.21 H (0.52-1.04) mg/dL Triglycerides 184 H (<150) mg/dL Cholesterol 224 H (<200) mg/dL LDL Cholesterol, Calc 153 H (0-99) mg/dL HDL Cholesterol 34 L (40-60) mg/dL
[2020-01-17 14:41] LABS: Hemoglobin A1C 5.8 % (4.0-6.0)
[2020-01-17] MEDS: ALBUTEROL NEBULIZED 2.5 MG/3 ML INHALATION PRN ×2 (15:25→19:33)
[2020-01-17] MEDS: EDURANT 25 MG PO SCH (16:38)
--- NOTE | 2020-01-17 19:47 | P.PN ---
Subjective Progress Note Date: 01/17/20 Patient was seen for a follow-up. Initial consultation performed by Dr. Wick yesterday. Please refer to note for details. Patient presented with dizziness and off-balance lightheadedness and headache. CT and MRI of the brain revealed right cerebellar stroke. CTA of head and neck revealed 40% stenosis of the left ICA. No reported stenosis of the vertebrobasilar system. Patient states today she feels much better. She has been started on dual antiplatelet medication. 2-D echo showed EF > 55%. Left front quarter size is normal. Normal left atrial size. Mild aortic valve sclerosis. Hemoglobin A1c 5.8, total cholesterol 224, LDL 153, HDL 34 and triglycerides 184. Patient was not on any antiplatelet medication at home. Patient denies hypertension or diabetes. She has smoked 1 pack per day for 16 years, still smokes. Patient is very hard of hearing. Objective - Vital Signs Vital signs: Vital Signs Temp 98.3 F 01/17/20 04:00 Pulse 52 L 01/17/20 19:34 Resp 16 01/17/20 19:34 BP 184/84 01/17/20 16:00 Pulse Ox 98 01/17/20 16:00 Intake & Output 01/17/20 01/17/20 01/18/20 06:59 18:59 06:59 Intake Total 375 Output Total 1650 Balance -1275 Weight 51 kg Intake: Oral 375 Output: Urine 1650 Other: Voiding Method Bedside Commode Bedside Commode # Voids 2 # Bowel Movements 1 1 - Exam On examination patient's mental status speech and language functions are normal. She is slightly hoarse voice. She is very hard of hearing. Her pupils are round and reacting visual morrison are full extraocular muscles are intact with no nystagmus. Face is symmetric and tongue protrudes the midline. No pronator drift and the strength is normal. No obvious ataxia for [id number] or [id number] testing at this time gait was deferred. - Labs CBC & Chem 7: 01/17/20 06:53 01/17/20 06:53 Labs: Abnormal Lab Results - Last 24 Hours (Table) 01/17/20 Range/Units 06:53 Creatinine 1.21 H (0.52-1.04) mg/dL Triglycerides 184 H (<150) mg/dL Cholesterol 224 H (<200) mg/dL LDL Cholesterol, Calc 153 H (0-99) mg/dL HDL Cholesterol 34 L (40-60) mg/dL Assessment and Plan Assessment: * Right cerebellar CVA, likely due distal embolism from atherosclerotic cerebrovascular disease. * Left ICA stenosis 40%. Likely asymptomatic. * Hypertension * Tobacco use * Hyperlipidemia * HIV Plan: * Continue dual antiplatelet medication for 3 weeks followed by monotherapy with aspirin 81 mg. * Patient strongly recommended complete tobacco cessation. * Continue high-dose statins. Patient's LDL is 153. * No obvious embolic source seen on the 2-D echo. * Hemoglobin A1c is 5.8 normal. * Patient's vertigo is better. Consider PT. * Neurologically clear for discharge.
[2020-01-17] MEDS: SODIUM CHLORIDE 0.9% 1,000 ML IV SCH (21:12)
[2020-01-18 00:22] VITALS: RESP 16
[2020-01-18 03:51] VITALS: TEMP 98.3
[2020-01-18] MEDS: LEVOTHYROXINE 50 MCG TAB PO SCH (05:37)
[2020-01-18] MEDS ORDERED: ONDANSETRON ODT 4 MG TAB PO PRN (07:33)
[2020-01-18] MEDS: HEPARIN SODIUM,PORCINE 5,000 UNIT/ML 1 ML VIAL SQ SCH (08:33)
[2020-01-18] MEDS: ATORVASTATIN 80 MG TAB PO SCH (08:34)
[2020-01-18] MEDS: HYDROcodone/APAP 10-325MG 1 EACH TAB PO SCH (08:34)
[2020-01-18] MEDS: amLODIPine 5 MG TAB PO SCH (08:34)
[2020-01-18] MEDS: ASPIRIN 81 MG PO SCH (08:34)
--- NOTE | 2020-01-18 08:34 | P.DS ---
Providers Date of admission: 01/15/20 21:05 Expected date of discharge: 01/18/20 Attending physician: Una Milian MD Consults: 01/16/20 03:37 Consult Physician Urgent Consulting Provider: Alma Wick Consult Reason/Comments: Acute on chronic CVA Do you want consulting provider notified?: Yes Primary care physician: Patrice Mcclain MD Hospital Course: Discharge Diagnosis: Subacute right sided cerebellar CVA HTN urgency HLD Hypothyroidism Chronic Pain COPD without exacerbation HIV GERD Hospital Course: Patient is a 59-year-old female past medical history of HIV on antiretroviral therapy (last CD4 count 700 per patient), COPD, and hypothyroidism who was transferred here from [place] for neurology evaluation. Initially she presented to [place] with complaints of dizziness, she underwent a head CT which showed acute evolving cerebellar infarct. On arrival here her vital signs are within normal limits. She underwent a CT angiogram of the head and neck which demonstrated a 20% stenosis of the origin of the right internal carotid and a 40% stenosis in the left internal carotid with no intracranial angiographic abnormalities. She was started on aspirin and statin. She was admitted for neurologic evaluation. Currently in normal sinus rhythm. She underwent MRI of the brain which showed right sided subacute cerebellar infarct. She was seen by neurology who recommended ASA, plavix, and statin. Her echo was within normal limits. Her blood pressure remained elevated and she reponded well to [facility]. Totoal cholesterol was above 200. She will follow with Dr. Treviño and will not drive untill cleared by neurology . She will follow with her primary physicain in 1 week. She will be on plavix X 3 weeks with ASA and then will conitnue ASA alone. She did not have any arrhythmia on telemetry during this hospital stay. Patient seen and examined at bedside. Dizziness is getting better, nausea resolved. He has a boyfriend, 2 daughters, and a friend that can stay with her 24 7 and she recovers from the stroke. No chest pain or shortness of breath. We would over common side effects all of her newly prescribed medication. She is a agreeable to having home health with PT and OT. She will follow up with her primary care physician as well as her neurologist. Vital signs reviewed and stable. General: non toxic, no distress, appears at stated age Derm: warm, dry Head: atraumatic, normocephalic, symmetric, [place] hearing aids in place Eyes: EOMI, no lid lag, anicteric sclera Mouth: no lip lesion, mucus membranes moist Cardiovascular: S1S2 reg, no murmur, positive posterior tibial pulse bilateral, Lungs: CTA bilateral, no rhonchi, no rales , no accessory muscle use Abdominal: soft, nontender to palpation, no guarding, no appreciable organomegaly Ext: no gross muscle atrophy, no edema, no contractures Neuro: CN II-XI grossly intact, no focal neuro deficits Psych: Alert, oriented, appropriate affect A total of 35 minutes of time were spent preparing this complex discharge summary . Patient Condition at Discharge: Stable Plan - Discharge Summary Discharge Rx Participant: No New Discharge Prescriptions: New Aspirin 81 mg PO DAILY chew Atorvastatin [Lipitor] 80 mg PO DAILY #30 tab amLODIPine [Norvasc] 5 mg PO DAILY #30 tab Clopidogrel [Plavix] 75 mg PO DAILY #21 tablet Continue Dolutegravir Sodium [Tivicay] 50 mg PO DAILY Morphine Sulfate [Ms Contin] 30 mg PO Q12H HYDROcodone/APAP 10-325MG [Rio 10-325] 1 tab PO TID Edurant 25mg 25 mg PO DAILY Levothyroxine Sodium [Synthroid] 50 mcg PO QAM Discharge Medication List Dolutegravir Sodium [Tivicay] 50 mg PO DAILY 01/15/20 [History] Edurant 25mg 25 mg PO DAILY 01/15/20 [History] HYDROcodone/APAP 10-325MG [Rio 10-325] 1 tab PO TID 01/15/20 [History] Morphine Sulfate [Ms Contin] 30 mg PO Q12H 01/15/20 [History] Levothyroxine Sodium [Synthroid] 50 mcg PO QAM 01/16/20 [History] Aspirin 81 mg PO DAILY chew 01/18/20 [Rx] Atorvastatin [Lipitor] 80 mg PO DAILY #30 tab 01/18/20 [Rx] Clopidogrel [Plavix] 75 mg PO DAILY #21 tablet 01/18/20 [Rx] amLODIPine [Norvasc] 5 mg PO DAILY #30 tab 01/18/20 [Rx] Follow up Appointment(s)/Referral(s): Patrice Mcclain MD [Primary Care Provider] - 1-2 days [facility], [NON-STAFF] - Venus Crandall MD [Medical Doctor] - 2 Weeks Patient Instructions/Handouts: Cholesterol and Your Health (GEN), Ischemic Stroke (DC), Hypotension (DC) Activity/Diet/Wound Care/Special Instructions: Activity: as tolerated Diet: heart healthy Special Instructions: No driving until cleared by Dr. Crandall Plavix for 3 weeks only and can then stop Monitor blood pressure Discharge Disposition: HOME SELF-CARE
[2020-01-18 08:40] VITALS: BP 183/87; PULSE 86
[2020-01-18] MEDS ORDERED: FAMOTIDINE 20 MG TAB PO SCH (09:00)
== END 2020-01-18 10:22 | disposition home health service (06) | DRG 66 ==
LOC: EC 19:45 → 3SCARD 21:05
PROVIDERS: ADMIT Internal Medicine; ATTEND Internal Medicine
DX: I63.441 Cerebral infarction due to embolism of right cerebellar artery (principal); H53.9 Unspecified visual disturbance; R40.2362 Coma scale, best motor response, obeys commands, at arrival to emergency department; R40.2142 Coma scale, eyes open, spontaneous, at arrival to emergency department; R40.2252 Coma scale, best verbal response, oriented, at arrival to emergency department; G89.29 Other chronic pain; H91.90 Unspecified hearing loss, unspecified ear; I16.0 Hypertensive urgency; I10 Essential (primary) hypertension; I35.8 Other nonrheumatic aortic valve disorders; I65.22 Occlusion and stenosis of left carotid artery; I67.2 Cerebral atherosclerosis; J44.9 Chronic obstructive pulmonary disease, unspecified; K21.9 Gastro-esophageal reflux disease without esophagitis; Z21 Asymptomatic human immunodeficiency virus [HIV] infection status; F32.9 Major depressive disorder, single episode, unspecified; F17.210 Nicotine dependence, cigarettes, uncomplicated; E03.9 Hypothyroidism, unspecified; E78.5 Hyperlipidemia, unspecified; Z79.82 Long term (current) use of aspirin; Z79.890 Hormone replacement therapy; M48.02 Spinal stenosis, cervical region; M19.90 Unspecified osteoarthritis, unspecified site; Z79.899 Other long term (current) drug therapy; Z88.1 Allergy status to other antibiotic agents; Z88.0 Allergy status to penicillin
CPT/HCPCS: 70496; 70498; 70551; 80048; 80061; 83036; 85027; 93306; 94640; 99284

== ENCOUNTER → 2021-11-22 | Outpatient (CLI) | payer OTHER | LOC: PNWHC3 12:00 | PROVIDERS: ATTEND Anesthesiology | DX: Z53.21 Procedure and treatment not carried out due to patient leaving prior to being seen by health care provider (principal) | CPT/HCPCS: 99211 ==